=== PATIENT | female | born 1990 | race Caucasian/White ===

== ENCOUNTER 2019-08-08 07:26 | Day surgery (SDC) | payer OTHER ==
[~2019-08-08] VITALS: Ht 170.2 cm; Wt 81.1 kg
[~2019-08-08 07:26] MED LIST: BUPIVACAINE/PF 0.5% ONE; EPINEPHRINE 1 MG/ML, 1ML ONE; VENL150C PO
[2019-08-08] MEDS ORDERED: LACTATED RINGERS 1,000 ML IV SCH ×2 (08:02→09:27)
[2019-08-08 08:09] VITALS: BP 102/71
[2019-08-08] MEDS ORDERED: APREPITANT 40 MG CAPSULE ONE (08:32)
[2019-08-08 08:35] LABS: HCG UR SG 1.023 (1.003-1.030)
[2019-08-08] MEDS ORDERED: FENTANYL PF 250 MCG/5ML ONE (08:45)
[2019-08-08] MEDS ORDERED: DEXAMETHASONE 4 MG/ML, 1ML ONE (08:49)
[2019-08-08] MEDS ORDERED: ONDANSETRON 2MG/ML, 2ML ONE (08:49)
[2019-08-08] MEDS ORDERED: CEFOTETAN 2 GM ONE (08:49)
[2019-08-08] MEDS ORDERED: SUGAMMADEX 200 MG/2 ML IVPush ONE (08:49)
[2019-08-08] MEDS ORDERED: MEPERIDINE/PF 50 MG/ML ONE (09:12)
[2019-08-08] MEDS ORDERED: KETOROLAC 30 MG/1 ML ONE (09:13)
[2019-08-08] MEDS ORDERED: PROPOFOL 10 MG/ML, 20ML ONE (09:13)
[2019-08-08] MEDS ORDERED: ROCURONIUM 10MG/ML,5ML ONE (09:13)
[2019-08-08] MEDS ORDERED: LIDOCAINE-MPF 2% ,5ML ONE (09:13)
[2019-08-08] MEDS ORDERED: PROMETHAZINE 25 MG/ML, 1ML IV PRN (09:30)
[2019-08-08] MEDS ORDERED: hydrALAzine 20 MG/ML, 1ML IV PRN (09:30)
[2019-08-08] MEDS ORDERED: HYDROcodone/APAP 5/325 TABLET PO PRN (09:30)
[2019-08-08] MEDS ORDERED: ONDANSETRON 2MG/ML, 2ML IVPush PRN (09:30)
[2019-08-08] MEDS ORDERED: OXYcodone 5 MG/5 ML ORAL.SOL UDC PO PRN (09:30)
[2019-08-08] MEDS ORDERED: MEPERIDINE/PF 25MG/ML,1ML IVPush PRN (09:30)
[2019-08-08] MEDS ORDERED: HYDROmorphone 2 MG/ML, 1ML IVPush PRN ×2 (09:30)
[2019-08-08] MEDS ORDERED: ACETAMINOPHEN 325 MG TABLET PO PRN (09:30)
[2019-08-08] MEDS: FENTANYL PF 100 MCG/2ML IV PRN ×2 (09:50→10:05)
[2019-08-08] MEDS ORDERED: OXYcodone 5 MG/5 ML ORAL.SOL UDC ONE (09:51)
[2019-08-08] MEDS ORDERED: FENTANYL PF 100 MCG/2ML ONE (09:51)
[2019-08-08] MEDS ORDERED: ACETAMINOPHEN 325 MG TABLET ONE (10:07)
[2019-08-08] MEDS ORDERED: ACETAMINOPHEN 650 MG/20.3 ML UDC ONE (10:08)
== END 2019-08-08 11:55 | disposition home or self-care (01) ==
LOC: OUT 07:26
PROVIDERS: ATTEND Thoracic Surgery (Cardiothoracic Vascular Surgery)
DX: K82.8 Other specified diseases of gallbladder (principal); K81.1 Chronic cholecystitis; K21.9 Gastro-esophageal reflux disease without esophagitis; I10 Essential (primary) hypertension; Z79.899 Other long term (current) drug therapy; Z98.51 Tubal ligation status; Z98.84 Bariatric surgery status; Z98.890 Other specified postprocedural states; Z82.49 Family history of ischemic heart disease and other diseases of the circulatory system; Z82.61 Family history of arthritis; Z80.1 Family history of malignant neoplasm of trachea, bronchus and lung; Z83.3 Family history of diabetes mellitus
CPT/HCPCS: 47562; 81025; 88304; J0171; J1100; J1885; J2175; J2405; J2704; J3010; J3490

== ENCOUNTER 2019-12-21 05:41 | Inpatient (IN) | payer OTHER ==
[2019-12-18 08:29] VITALS: BP 111/75
[2019-12-18 09:24] LABS: HCG UR SG 1.025 (1.003-1.030)
[2019-12-18 09:35] LABS: MEAN CORPUSCULAR HEMOGLOBIN 21.5 pg (27.0-34.8); MEAN CORPUSCULAR HGB CONC 31.6 g/dL (32.4-35.8); PLATELET COUNT 279 x10^3/uL (130-400); RED BLOOD COUNT 5.13 x10^6/uL (3.82-5.3); RED CELL DISTRIBUTION WIDTH 14.2 % (9.6-15.2)
[2019-12-18 09:52] LABS: MD YES
[2019-12-18 09:54] LABS: LYMPH#(MANUAL) 2.02 x10^3/uL (1-3.4); LYMPHS% (MANUAL) 63 % (22-44); MONOS#(MANUAL) 0.35 x10^3/uL (0.3-2.7); MONOS% (MANUAL) 11 % (2-9); SEG#(MANUAL) 0.83 x10^3/uL (1.8-6.8); SEGS% (MANUAL) 26 % (42-75)
[2019-12-18 09:55] LABS: <PLATELET ESTIMATE> ADEQUATE; <PLT MORPHOLOGY> NORMAL PLT MORPH; MICROCYTOSIS 1+
[2019-12-18 09:58] LABS: POLYCHROMASIA 1+
[2019-12-18 10:00] LABS: OVALOCYTES 1+
[~2019-12-21] VITALS: Ht 170.2 cm; Wt 92.0 kg
[~2019-12-21 05:41] MED LIST changes: +AMPH20CA7 PO; -BUPIVACAINE/PF 0.5% ONE; +DEXT10TA7 PO; -EPINEPHRINE 1 MG/ML, 1ML ONE; +Iron PO; +NORE5TAB PO; +OMEP20TA62 PO; +SUCR1ORA5 PO; +Vitamin c PO
[2019-12-21] MEDS ORDERED: LACTATED RINGERS 1,000 ML IV SCH ×2 (06:04→18:30)
[2019-12-21] MEDS ORDERED: ACETAMINOPHEN 500 MG TABLET PO ONE (06:30)
[2019-12-21] MEDS ORDERED: CHLORHEXIDINE 15 ML UDC MM ONE (06:30)
[2019-12-21] MEDS ORDERED: GABAPENTIN 300 MG CAPSULE PO ONE (06:30)
[2019-12-21 06:57] LABS: HCG UR SG 1.026 (1.003-1.030)
[2019-12-21] MEDS ORDERED: BUPIVACAINE/PF-EPI 0.25% 1:200K ONE (07:03)
[2019-12-21] MEDS ORDERED: FLUORESCEIN SODIUM 500 MG/5 ML ONE (07:03)
[2019-12-21] MEDS ORDERED: MIDAZOLAM 1 MG/ML, 2ML ONE (07:08)
[2019-12-21] MEDS ORDERED: FENTANYL PF 250 MCG/5ML ONE (07:09)
[2019-12-21] MEDS ORDERED: SCOPOLAMINE 1MG PATCH TD ONE ×2 (07:19)
[2019-12-21] MEDS ORDERED: MEPERIDINE/PF 25MG/ML,1ML IVPush PRN (07:30)
[2019-12-21] MEDS ORDERED: PROMETHAZINE 25 MG/ML, 1ML IV PRN (07:30)
[2019-12-21] MEDS ORDERED: HALOPERIDOL 5 MG/ML IV PRN (07:30)
[2019-12-21] MEDS ORDERED: LABETALOL 5MG/ML, 20ML IV PRN (07:30)
[2019-12-21] MEDS ORDERED: hydrALAzine 20 MG/ML, 1ML IV PRN (07:30)
[2019-12-21] MEDS ORDERED: ROCURONIUM 10MG/ML,5ML ONE (09:31)
[2019-12-21] MEDS ORDERED: SUCCINYLCHOLINE 20 MG/ML, 10ML ONE (09:31)
[2019-12-21] MEDS ORDERED: ONDANSETRON 2MG/ML, 2ML ONE (09:31)
[2019-12-21] MEDS ORDERED: NEOSTIGMINE 1 MG/ML, 10ML ONE (09:31)
[2019-12-21] MEDS ORDERED: PROPOFOL 10 MG/ML, 20ML ONE (09:31)
[2019-12-21] MEDS ORDERED: GLYCOPYRROLATE 0.2MG/1ML, 5ML ONE (09:31)
[2019-12-21] MEDS ORDERED: DEXAMETHASONE 4 MG/ML, 1ML ONE (09:31)
[2019-12-21] MEDS ORDERED: CEFAZOLIN 1,000 MG ONE (09:31)
[2019-12-21] MEDS ORDERED: FENTANYL PF 100 MCG/2ML ONE (09:54)
[2019-12-21] MEDS ORDERED: OXYcodone 5 MG/5 ML ORAL.SOL UDC ONE ×2 (09:54→13:56)
[2019-12-21] MEDS: FENTANYL PF 100 MCG/2ML IV PRN ×2 (09:55→10:00)
[2019-12-21] MEDS: OXYcodone 5 MG/5 ML ORAL.SOL UDC PO PRN ×2 (10:00→14:00)
[2019-12-21] MEDS ORDERED: HYDROmorphone 1 MG/ML, 1ML INJ ONE (10:14)
[2019-12-21] MEDS: HYDROmorphone 2 MG/ML, 1ML IVPush PRN ×2 (10:20→10:40)
[2019-12-21] MEDS: HYDROcodone/APAP 7.5-325MG/15ML UDC PO PRN ×2 (18:22→22:43)
[2019-12-21] MEDS ORDERED: ONDANSETRON 2MG/ML, 2ML IV PRN (18:30)
[2019-12-21] MEDS: LACTATED RINGERS 1,000 ML IV SCH (18:46)
[2019-12-21] MEDS ORDERED: OMEPRAZOLE 20 MG CAPSULE.DR PO PRN (19:00)
[2019-12-21 19:09] VITALS: BP 94/50
[2019-12-21 20:01] VITALS: BP 90/46
[2019-12-21 20:17] VITALS: BP 105/63
[2019-12-21] MEDS: AMOXICILLIN/CLAV 500-125MG TABLET PO SCH (20:43)
[2019-12-21] MEDS: DOCUSATE 100 MG CAPSULE PO SCH (20:44)
[2019-12-21] MEDS: FERROUS SULFATE 325 MG TABLET PO SCH (20:44)
[2019-12-21] MEDS: HYDROmorphone 2 MG/ML, 1ML IV PRN (20:48)
[2019-12-21] MEDS: SODIUM CHLORIDE FLUSH 10ML SYR IVF SCH (20:51)
[2019-12-21 21:14] VITALS: BP 105/61
[2019-12-21 22:15] VITALS: BP 106/65
[2019-12-22] VITALS (11 sets, daily range): BP systolic 100–123; BP diastolic 61–80
[2019-12-22] MEDS: HYDROmorphone 2 MG/ML, 1ML IV PRN ×2 (01:29→06:05)
[2019-12-22] MEDS: HYDROcodone/APAP 7.5-325MG/15ML UDC PO PRN ×6 (03:36→20:23)
[2019-12-22] MEDS: LACTATED RINGERS 1,000 ML IV SCH (03:40)
[2019-12-22] MEDS ORDERED: SODIUM CHLORIDE 0.9% 1,000 ML IV SCH (08:00)
[2019-12-22] MEDS ORDERED: NORETHINDRONE 5 MG TAB PO SCH (09:00)
[2019-12-22] MEDS: ADDERALL 20 MG HOMEMEDPO SCH (09:00)
[2019-12-22] MEDS: FERROUS SULFATE 325 MG TABLET PO SCH ×2 (11:16→20:24)
[2019-12-22] MEDS: VENLAFAXINE XR 37.5MG CAP.ER.24H PO SCH (11:16)
[2019-12-22] MEDS: DOCUSATE 100 MG CAPSULE PO SCH ×2 (11:17→20:23)
[2019-12-22] MEDS: AMOXICILLIN/CLAV 500-125MG TABLET PO SCH (11:19)
[2019-12-22] MEDS ORDERED: CEFAZOLIN 1,000 MG IM SCH (13:00)
[2019-12-22] MEDS: CEFAZOLIN PMX 1GM/50ML 50 ML IV SCH ×2 (14:54→21:24)
[2019-12-22] MEDS: SODIUM CHLORIDE FLUSH 10ML SYR IVF SCH ×2 (16:43→20:24)
[2019-12-23 00:27] VITALS: BP 118/76
[2019-12-23] MEDS: HYDROcodone/APAP 7.5-325MG/15ML UDC PO PRN ×3 (00:46→09:10)
[2019-12-23 05:14] LABS: BASOPHILS # (AUTO) 0.01 x10^3/uL (0-0.1); BASOPHILS % (AUTO) 0 % (0-1); EOSINOPHILS # (AUTO) 0.05 x10^3/uL (0-0.4); EOSINOPHILS % (AUTO) 1 % (1-7); LYMPHOCYTES # (AUTO) 1.28 x10^3/uL (1-3.4); LYMPHOCYTES % (AUTO) 39 % (22-44); MD NO; MEAN CORPUSCULAR HEMOGLOBIN 23.7 pg (27.0-34.8); MEAN CORPUSCULAR HGB CONC 32.7 g/dL (32.4-35.8); MEAN CORPUSCULAR VOLUME 72.3 fL (80-100); MEAN PLATELET VOLUME 8.1 fL (7.4-10.4); MONOCYTES # (AUTO) 0.28 x10^3/uL (0.2-0.8); MONOCYTES % (AUTO) 9 % (2-9); NEUTROPHILS # (AUTO) 1.64 x10^3/uL (1.8-6.8); NEUTROPHILS % (AUTO) 50 % (42-75); PLATELET COUNT 178 x10^3/uL (130-400); RED BLOOD COUNT 3.39 x10^6/uL (3.82-5.3); RED CELL DISTRIBUTION WIDTH 17.9 % (9.6-15.2)
[2019-12-23] MEDS: CEFAZOLIN PMX 1GM/50ML 50 ML IV SCH (05:38)
[2019-12-23 06:38] VITALS: BP 110/70
[2019-12-23] MEDS ORDERED: SODIUM CHLORIDE 0.9% 1,000 ML IV SCH (08:00)
[2019-12-23] MEDS: ADDERALL 20 MG HOMEMEDPO SCH (09:00)
[2019-12-23] MEDS: DOCUSATE 100 MG CAPSULE PO SCH (09:11)
[2019-12-23] MEDS: VENLAFAXINE XR 37.5MG CAP.ER.24H PO SCH (09:11)
[2019-12-23] MEDS: FERROUS SULFATE 325 MG TABLET PO SCH (09:11)
[2019-12-23] MEDS: SODIUM CHLORIDE FLUSH 10ML SYR IVF SCH (09:11)
[2019-12-23] MEDS ORDERED: AMOX1TAB61 PO (10:30)
== END 2019-12-23 12:04 | disposition home or self-care (01) | DRG 743 ==
LOC: OUT 05:41 → OBSVTOIN 16:58 → ORIP 16:58 → 4NE 17:52
PROVIDERS: ADMIT Obstetrics & Gynecology; ATTEND Obstetrics & Gynecology
PROC: 0UT70ZZ Resection of Bilateral Fallopian Tubes, Open Approach (ICD-10-PCS; 2019-12-21)
PROC: 0UT20ZZ Resection of Bilateral Ovaries, Open Approach (ICD-10-PCS; 2019-12-21)
PROC: 0UQF0ZZ Repair Cul-de-sac, Open Approach (ICD-10-PCS; 2019-12-21)
PROC: 30233N1 Transfusion of Nonautologous Red Blood Cells into Peripheral Vein, Percutaneous Approach (ICD-10-PCS; 2019-12-21)
PROC: 0UT90ZZ Resection of Uterus, Open Approach (ICD-10-PCS; principal; 2019-12-21 07:30)
DX: N81.4 Uterovaginal prolapse, unspecified (principal); D64.9 Anemia, unspecified; K46.9 Unspecified abdominal hernia without obstruction or gangrene; K59.00 Constipation, unspecified; N89.8 Other specified noninflammatory disorders of vagina; R33.8 Other retention of urine; Z53.9 Procedure and treatment not carried out, unspecified reason; Z87.440 Personal history of urinary (tract) infections; Z90.710 Acquired absence of both cervix and uterus; Z98.84 Bariatric surgery status; N92.0 Excessive and frequent menstruation with regular cycle; N94.6 Dysmenorrhea, unspecified
CPT/HCPCS: 36415; 81025; 85014; 85018; 85025; 86850; 86900; 86923; 88307; G0378; J0690; J1100; J1170; J2250; J2405; J2704; J2710; J3010; J0330; J7030; J7120; P9016; U0001

== ENCOUNTER 2019-12-25 20:01 | Emergency (ER) | payer OTHER ==
[~2019-12-25] VITALS: Ht 170.2 cm; Wt 84.4 kg
[~2019-12-25 20:01] MED LIST changes: +AMOX1TAB61 PO
[2019-12-25 21:25] LABS: CULTURE INDICATED? YES; MICROSCOPIC INDICATED
[2019-12-25 21:37] LABS: MEAN CORPUSCULAR HEMOGLOBIN 23.6 pg (27.0-34.8); MEAN CORPUSCULAR VOLUME 71.4 fL (80-100); MEAN PLATELET VOLUME 8.3 fL (7.4-10.4); PLATELET COUNT 185 x10^3/uL (130-400); RED BLOOD COUNT 3.55 x10^6/uL (3.82-5.3); RED CELL DISTRIBUTION WIDTH 19.1 % (9.6-15.2)
[2019-12-25 21:42] LABS: ALBUMIN 3.1 g/dL (3.4-5.0); ANION GAP 7 mmol/L (5-15); CALCIUM 7.8 mg/dL (8.5-10.1); CHLORIDE 111 mmol/L (98-107); CREATININE 0.49 mg/dL (0.55-1.02)
[2019-12-25 21:58] LABS: BASOPHILS # (AUTO) 0.01 x10^3/uL (0-0.1); BASOPHILS % (AUTO) 1 % (0-1); EOSINOPHILS # (AUTO) 0.05 x10^3/uL (0-0.4); EOSINOPHILS % (AUTO) 2 % (1-7); LYMPHOCYTES # (AUTO) 1.01 x10^3/uL (1-3.4); LYMPHOCYTES % (AUTO) 38 % (22-44); MD MORPH REVIEW ONLY; MONOCYTES # (AUTO) 0.26 x10^3/uL (0.2-0.8); MONOCYTES % (AUTO) 10 % (2-9); NEUTROPHILS # (AUTO) 1.36 x10^3/uL (1.8-6.8); NEUTROPHILS % (AUTO) 50 % (42-75)
[2019-12-25 22:14] LABS: ANISOCYTOSIS 1+; MICROCYTOSIS 1+
[2019-12-25 22:15] LABS: OVALOCYTES 2+
[2019-12-25 22:16] LABS: <PLATELET ESTIMATE> ADEQUATE; <PLT MORPHOLOGY> NORMAL PLT MORPH
[2019-12-25 22:19] VITALS: BP 109/70
[2019-12-25] MEDS ORDERED: OMNIPAQUE 350 MG/ML, 100ML BOTTLE ONE (22:30)
[2019-12-25] MEDS ORDERED: SODIUM CHLORIDE FLUSH 10ML SYR IVF ONE (22:30)
--- NOTE | 2019-12-25 23:07 | NUR ---
[facility] paged for md Rodriguez.
--- NOTE | 2019-12-25 23:35 | NUR ---
Second page to CHRISTIANN.
--- NOTE | 2019-12-26 00:02 | NUR ---
Paging serivce to call Dr. Tyler to assist with consult. Dr. Ray never returned page at this time.
--- NOTE | 2019-12-26 00:12 | NUR ---
Dr. Tyler returned call at this time.
== END 2019-12-26 00:45 | disposition home or self-care (01) ==
LOC: ED 20:49
DX: N39.0 Urinary tract infection, site not specified (principal); R30.0 Dysuria; R10.30 Lower abdominal pain, unspecified; R50.9 Fever, unspecified
CPT/HCPCS: 36415; 74177; 80048; 81001; 82040; 85025; 87086; 99285; Q9967